=== PATIENT | female | born 1995 | race Caucasian/White ===

== ENCOUNTER 2020-01-16 06:05 | Day surgery (SDC) | payer OTHER ==
[2020-01-10 10:35] LABS: BASOPHILS % (AUTO) 0.4 % (0-1); EOSINOPHILS # (AUTO) 0.8 X10'3 (0-0.9); EOSINOPHILS % (AUTO) 8.2 % (0-6); LYMPHOCYTES # (AUTO) 2.8 X10'3 (1.1-4.8); LYMPHOCYTES % (AUTO) 26.9 % (21-51); MEAN CORPUSCULAR HEMOGLOBIN 30.9 PG (27.0-31.0); MEAN CORPUSCULAR HGB CONC 34.4 g/dL (33.0-36.5); MEAN CORPUSCULAR VOLUME 89.7 FL (78-98); MEAN PLATELET VOLUME 7.4 FL (7.4-10.4); MONOCYTES # (AUTO) 0.5 X10'3 (0-0.9); MONOCYTES % (AUTO) 4.8 % (2-12); NEUTROPHILS # (AUTO) 6.2 X10'3 (1.8-7.7); NEUTROPHILS % (AUTO) 59.7 % (42-75); PRE OP HEMATOCRIT 47.3 % (35.0-45.0); PRE OP HEMOGLOBIN 16.3 g/dL (12.0-16.0); PRE OP PLATELET COUNT 296 X10'3 (140-440); RED BLOOD COUNT 5.27 X10'6 (4.20-5.60); RED CELL DISTRIBUTION WIDTH 12.9 % (11.5-14.5)
[2020-01-10 10:45] LABS: PRE OP PROTIME 10.7 SECONDS (9.0-12.0)
[2020-01-10 10:54] LABS: ALBUMIN/GLOBULIN RATIO 0.9 (1.1-1.5); ALKALINE PHOSPHATASE 68 IU/L (46-116); BLOOD UREA NITROGEN 4 MG/DL (7-18); CALCIUM 9.2 MG/DL (8.5-10.1); CHLORIDE 104 MMOL/L (99-107); CREATININE 0.57 MG/DL (0.40-0.90); PRE OP ALT 33 U/L (30-65); PRE OP ANION GAP 9 (8-16); PRE OP AST 22 U/L (10-37); PRE OP BILIRUB, TOTAL 0.4 MG/DL (0.0-1.0); PRE OP GLUCOSE 87 MG/DL (70-104); PRE OP POTASSIUM 3.5 MMOL/L (3.4-5.1); PRE OP SODIUM 141 MMOL/L (135-145); TOTAL CARBON DIOXIDE 28.1 MMOL/L (24-32); TOTAL PROTEIN 8.4 G/DL (6.4-8.2); eGFR > 90 ML/MIN
[2020-01-10 11:33] LABS: HCG SERUM QL NEGATIVE
[2020-01-10 14:01] LABS: PLATELET FUNCTION (ADP) 119 SECONDS (63-104)
[2020-01-16] VITALS (12 sets, daily range): BP systolic 115–128; BP diastolic 61–87
[~2020-01-16] VITALS: Ht 170.2 cm; Wt 54.4 kg
[~2020-01-16 06:05] MED LIST: BUDE10.2 INH; DIPH25CA83 PO; FEXO-219 PO; [UNRECOGNIZED DRUG - CODE] PO; famotidine 20mg tablet PO ONE; ringers solution, lacted 1,000 ML IV SCH
[2020-01-16] MEDS ORDERED: cocaine 4% topical solution 4ml bottle ONE (06:39)
[2020-01-16] MEDS ORDERED: mupirocin 2% ointment 22GM ONE (06:40)
[2020-01-16] MEDS ORDERED: oxymetazoline 15 ML nasal spray NS ONE ×2 (06:40→08:15)
[2020-01-16] MEDS ORDERED: cefTAZidime 1gm inj ONE (06:40)
[2020-01-16] MEDS ORDERED: LIDOcaine 1% W/epiNEPHrine 1:100,000 20ml vial ONE ×2 (06:40→07:07)
[2020-01-16] MEDS ORDERED: fentaNYL /PF 50mcg/ml 5ml ampule ONE (08:05)
[2020-01-16] MEDS ORDERED: propofol inj 20 ML IV ONE (08:05)
[2020-01-16] MEDS ORDERED: LIDOcaine 2% (20mg/ml) 5ml vial ONE (08:05)
[2020-01-16] MEDS ORDERED: midazolam 2 mg/2 ml injection ONE (08:05)
[2020-01-16] MEDS ORDERED: dexamethasone sod phosphate 4mg/ml inj. ONE (08:07)
[2020-01-16] MEDS ORDERED: ondansetron/PF 4mg/2ml inj ONE (08:07)
[2020-01-16] MEDS ORDERED: sevoflurane 250ml liquid IH ONE (08:20)
[2020-01-16] MEDS ORDERED: morphine 2 MG/ML inj. syringe IV PRN (09:30)
[2020-01-16] MEDS ORDERED: meperidine/PF 25mg/ml syringe IV PRN ×3 (09:30)
[2020-01-16] MEDS ORDERED: ondansetron/PF 4mg/2ml inj IV PRN (09:30)
[2020-01-16] MEDS ORDERED: morphine 4 MG/ML inj SYRINge IV PRN (09:30)
[2020-01-16] MEDS ORDERED: proCHLORperazine 10 MG/2 ml inj IV PRN (09:30)
[2020-01-16] MEDS ORDERED: ringers solution, lacted 1,000 ML IV SCH (09:30)
[2020-01-16] MEDS ORDERED: salt irrigation nasal spray 45 ML SPRAY NS PRN (10:50)
--- NOTE | 2020-01-16 11:10 | NUR ---
Received from OR via BED , accompanied by Anesthesiologist DR BARGER and report given by Anesthesiolgist. PATIENT WAKING UP, DENIES PAIN, V/S WNL, CSM INTACT, 20G PIV TO RUE, COTTONOID PACKING TO BILATERALLY SINUSES WITH NO ACTIVE DRAINAGE VISABLE AT THIS TIME
--- NOTE | 2020-01-16 12:40 | NUR ---
PATIENT A&OX4, DENIES PAIN, V/S WNL, CSM INTACT, 20G PIV TO RUE D/C, COTTONOID PACKING TO BILATERALLY SINUSES D/C , 4X4 WITH NOSE BAND ON WITH MINIMAL DRAINAGE. I HAVE GIVEN MEDS ORDERED PER DR ROY. I HAVE REVIEWED D/C INSTRUCTIONS WITH PATIENT AND FAMILY AND THEY HAVE VERBALIZED UNDERSTANDING. PATIENT D/C HOME WITH ALL BELONGINGS AND FAMILY GAVE TRANSPORT HOME.PATIENT OFFERED MASK BUT REFUSED TO WEAR IT AT UPON D/C.
== END 2020-01-16 12:40 | disposition home or self-care (01) ==
LOC: PAS 06:05
PROVIDERS: ATTEND Otolaryngology
DX: J34.2 Deviated nasal septum (principal); J34.3 Hypertrophy of nasal turbinates; J32.8 Other chronic sinusitis; J33.8 Other polyp of sinus; J45.909 Unspecified asthma, uncomplicated; Z20.828 Contact with and (suspected) exposure to other viral communicable diseases; Z79.01 Long term (current) use of anticoagulants; Z79.899 Other long term (current) drug therapy; Z87.891 Personal history of nicotine dependence; Z88.8 Allergy status to other drugs, medicaments and biological substances; Z72.89 Other problems related to lifestyle
CPT/HCPCS: 30140; 30520; 31253; 31259; 31267; 36415; 61782; 70486; 80053; 82948; 84703; 85025; 85576; 85610; 85730; 87070; 87075; 87102; 87635; A6402; C1726; C9250; C9803; J0713; J1100; J2001; J2250; J2405; J2704; J3010; J7040; J7120; A4618; A7000

== ENCOUNTER 2020-02-27 06:01 | Day surgery (SDC) | payer OTHER ==
[2020-02-20 12:59] LABS: BASOPHILS % (AUTO) 0.6 % (0-1); EOSINOPHILS # (AUTO) 0.1 X10'3 (0-0.9); EOSINOPHILS % (AUTO) 1.4 % (0-6); LYMPHOCYTES % (AUTO) 47.2 % (21-51); MEAN CORPUSCULAR HGB CONC 34.3 g/dL (33.0-36.5); MEAN CORPUSCULAR VOLUME 90.4 FL (78-98); MEAN PLATELET VOLUME 6.6 FL (7.4-10.4); MONOCYTES # (AUTO) 0.5 X10'3 (0-0.9); MONOCYTES % (AUTO) 6.5 % (2-12); NEUTROPHILS # (AUTO) 3.7 X10'3 (1.8-7.7); NEUTROPHILS % (AUTO) 44.3 % (42-75); PRE OP HEMATOCRIT 40.8 % (35.0-45.0); PRE OP PLATELET COUNT 310 X10'3 (140-440); RED BLOOD COUNT 4.51 X10'6 (4.20-5.60); RED CELL DISTRIBUTION WIDTH 12.6 % (11.5-14.5)
[2020-02-20 13:12] LABS: PRE OP PARTIAL THROMB. TIME 25 SECONDS (22-32)
[2020-02-20 13:14] LABS: ALBUMIN 3.8 G/DL (3.4-5.0); ALKALINE PHOSPHATASE 49 IU/L (46-116); BLOOD UREA NITROGEN 9 MG/DL (7-18); BUN/CREATININE RATIO 15.5 (6.6-38.0); CALCIUM 9.3 MG/DL (8.5-10.1); CHLORIDE 102 MMOL/L (99-107); CREATININE 0.58 MG/DL (0.40-0.90); PRE OP ALT 34 U/L (30-65); PRE OP ANION GAP 8 (8-16); PRE OP AST 18 U/L (10-37); PRE OP BILIRUB, TOTAL 0.4 MG/DL (0.0-1.0); PRE OP GLUCOSE 81 MG/DL (70-104); PRE OP SODIUM 140 MMOL/L (135-145); TOTAL PROTEIN 7.7 G/DL (6.4-8.2); eGFR > 90 ML/MIN
[2020-02-20 13:24] LABS: PRE OP POTASSIUM 3.3 MMOL/L (3.4-5.1)
[2020-02-20 14:41] LABS: PREOP HCG, QL SERUM NEGATIVE (NEGATIVE)
[~2020-02-27] VITALS: Ht 170.2 cm; Wt 48.0 kg
[2020-02-27] VITALS (7 sets, daily range): BP systolic 113–127; BP diastolic 71–92
[~2020-02-27 06:01] MED LIST changes: -DIPH25CA83 PO; -FEXO-219 PO; +PRED5TAB PO; +[UNRECOGNIZED DRUG - OTHER] PO; +oxymetazoline 15 ML nasal spray NS ONE
[2020-02-27] MEDS ORDERED: mupirocin 2% ointment 22GM ONE (06:42)
[2020-02-27] MEDS ORDERED: cocaine 4% topical solution 4ml bottle ONE (06:42)
[2020-02-27] MEDS ORDERED: LIDOcaine 1% W/epiNEPHrine 1:100,000 20ml vial ONE (06:42)
[2020-02-27] MEDS ORDERED: oxymetazoline 15 ML nasal spray NS ONE (06:43)
[2020-02-27 06:58] LABS: ISTAT ANION GAP 13 (8-12); ISTAT BUN 5 mg/dL (6-19); ISTAT CL 103 mmol/L (99-107); ISTAT CREATININE 0.4 mg/dL (0.6-1.1); ISTAT GLUCOSE 83 mg/dL (70-104); ISTAT HGB 13.6 g/dl (12.0-16.0); ISTAT Hct 40 %PCV (35-48); ISTAT IONIZED CALCIUM 1.26 mmol/L (1.03-1.32); ISTAT NA 140 mmol/L (135-145); ISTAT TOTAL CO2 24 mmol/L (24-32); ISTAT eGFR > 90 ML/MIN; POC BUN/CREATININE RATIO 12.5 (6.6-38.0)
[2020-02-27] MEDS ORDERED: acetaminophen 1000 MG/100ml vial IV ONE (08:02)
[2020-02-27] MEDS ORDERED: sevoflurane 250ml liquid IH ONE (08:02)
[2020-02-27] MEDS ORDERED: fentaNYL/PF 50MCG/1 ML 2ML syringe ONE (08:07)
[2020-02-27] MEDS ORDERED: midazolam 2 mg/2 ml injection ONE (08:08)
[2020-02-27] MEDS ORDERED: cefTAZidime 1gm inj ONE (08:24)
[2020-02-27] MEDS ORDERED: methylPREDNISolone sod succ 125mg/2ml vial ONE (08:24)
[2020-02-27] MEDS ORDERED: methylPREDNISolone acetate 80mg/ml inj**IM only ONE (08:25)
[2020-02-27] MEDS ORDERED: ondansetron/PF 4mg/2ml inj ONE (08:47)
[2020-02-27] MEDS ORDERED: LIDOcaine 2% (20mg/ml) 5ml vial ONE (08:47)
[2020-02-27] MEDS ORDERED: propofol inj 20 ML IV ONE (08:47)
[2020-02-27] MEDS ORDERED: dexamethasone sod phosphate 4mg/ml inj. ONE (08:47)
--- NOTE | 2020-02-27 09:54 | NUR ---
Received from OR via , accompanied by Anesthesiologist DR MCCRACKEN and report given by Anesthesiolgist. AWAKENS TO VOICE. VITALS STABLE. DRESSING DI. RUSH PAIN.
[2020-02-27] MEDS ORDERED: ondansetron/PF 4mg/2ml inj IV PRN (09:55)
[2020-02-27] MEDS ORDERED: hydrALAZINE 20mg/ml inj. IV PRN (09:55)
[2020-02-27] MEDS ORDERED: meperidine/PF 25mg/ml syringe IV PRN ×3 (09:55)
[2020-02-27] MEDS ORDERED: morphine 2 MG/ML inj. syringe IV PRN (09:55)
[2020-02-27] MEDS ORDERED: ringers solution, lacted 1,000 ML IV SCH (09:55)
[2020-02-27] MEDS ORDERED: labetalol 20mg/4ml (5mg/ml) syringe IV PRN (09:55)
[2020-02-27] MEDS ORDERED: proCHLORperazine 10 MG/2 ml inj IV PRN (09:55)
[2020-02-27] MEDS ORDERED: morphine 4 MG/ML inj SYRINge IV PRN (09:55)
[2020-02-27] MEDS ORDERED: oxymetazoline 15 ML nasal spray NS PRN (10:25)
[2020-02-27] MEDS ORDERED: salt irrigation nasal spray 45 ML SPRAY NS PRN (10:25)
--- NOTE | 2020-02-27 11:14 | NUR ---
AWAKE AND ORIENTED. VITALS STABLE. DRESSING DI. RUSH PAIN. HOME WITH HER SPOUSE AT THIS TIME.
== END 2020-02-27 11:14 | disposition home or self-care (01) ==
LOC: PAS 06:01
PROVIDERS: ATTEND Otolaryngology
DX: J32.8 Other chronic sinusitis (principal); J33.8 Other polyp of sinus; J45.909 Unspecified asthma, uncomplicated; Z72.89 Other problems related to lifestyle; Z87.891 Personal history of nicotine dependence; Z88.8 Allergy status to other drugs, medicaments and biological substances; Z79.899 Other long term (current) drug therapy; Z98.890 Other specified postprocedural states; Z79.01 Long term (current) use of anticoagulants; Z20.822 Contact with and (suspected) exposure to COVID-19
CPT/HCPCS: 30140; 31253; 31259; 31267; 36415; 61782; 80047; 80053; 84703; 85025; 85576; 85610; 85730; 87635; A6402; C1726; C9250; C9803; J0131; J0713; J1040; J1100; J2001; J2250; J2405; J2704; J2930; J3010; J7040; J7120; A4618; A7000